=== PATIENT | male | born 1965 | race Caucasian/White ===

== ENCOUNTER → 2017-12-02 | Outpatient (CLI) | payer OTHER ==
[~2017-12-02] MED LIST: COLACE100 MG PO; FLEXERIL PO; LISINOPRIL-HCT1 EAC1 PO
--- NOTE | ~2017-12-02 | 2DMMODE ---
[facility] [place] [address] 2 D/M-MODE ECHOCARDIOGRAM Name: MARIA GUADALUPE ROBLERO JR Room #: REG [facility]#: [id number] Admission: 12/02/17 Attend Phys: Murray Kwong, Discharge: Date of : 67 Date of Service: 12/02/17 1724 Report #: [id number] THIS REPORT FOR: //name// APPROVED REPORT Study performed: 12/02/2017 14:04:34 EXAM: Comprehensive 2D, Doppler, and color-flow Echocardiogram Patient Location: Echo lab Status: routine BSA: 2.28 HR: 70 bpm BP: 130/91 mmHg Rhythm: NSR Other Information Study Quality: Adequate Risk Factors: Cardiac Risk Factors: HTN Indications Pulmonary Embolism 2D Dimensions LVEF(%): 55.00 (>50%) IVSd: 10.26 (7-11mm) LVOT Diam: 22.00 (18-24mm) LVDd: 52.07 mm PWd: 10.80 (7-11mm) Ascending Ao: 33.71 (22-36mm) LVDs: 39.10 (25-40mm) Aortic Root: 31.79 mm LV Single Plane 4CH: 54.21 % LV Single Plane 2CH: 55.97 % Alcantara's LVEF: 55.09 % Biplane EF: 55.4 % Volumes Left Atrial Volume (Systole) Single Plane 4CH: 43.51 mL Single Plane 2CH: 48.21 mL LA ESV Index: 22.00 mL/m2 Aortic Valve AoV Peak Rene.: 1.22 m/s AO Peak Gr.: 5.93 mmHg LVOT Max P.21 mmHg LVOT Max V: 1.03 m/s [facility] [place] [address] 2 D/M-MODE ECHOCARDIOGRAM Name: MARIA GUADALUPE ROBLERO Room #: [facility]#: [id number] Admission: 12/02/17 Attend Phys: Murray Kwong, Discharge: Date of : 67 Date of Service: 12/02/17 1724 Report #: [id number] CLINT Vmax: 3.28 cm2 Mitral Valve E/A Ratio: 0.9 MV Decel. Time: 254.76 ms MV E Max Rene.: 0.62 m/s MV A Rene.: 0.69 m/s MV PHT: 73.88 ms IVRT: 65.74 ms TDI E/Lateral E': 5.17 E/Medial E': 7.75 Medial E' Rene.: 0.08 m/s Lateral E' Rene.: 0.12 m/s Pulmonary Valve PV Peak Rene.: 0.99 m/s PV Peak Gr.: 3.93 mmHg Pulmonary Vein P Vein S: 0.55 m/s P Vein A: 0.28 m/s P Vein D: 0.62 m/s P Vein A Dur.: 107.3 msec P Vein S/D Ratio: 0.89 Tricuspid Valve RAP Estimate: 7.00 mmHg Left Ventricle The left ventricle is normal size. There is normal LV segmental wall motion. There is normal left ventricular wall thickness. Left ventricular systolic function is normal. The left ventricular ejection fraction is within the normal range. LVEF is 55-60%. Right Ventricle The right ventricle is normal size. The right ventricular systolic function is normal. Atria The left atrium size is normal. The right atrium size is normal. Aortic Valve The aortic valve is normal in structure. No aortic regurgitation is present. There is no aortic valvular stenosis. Mitral Valve The mitral valve is normal in structure. There is no mitral valve [place] [address] [place] [address] 2 D/M-MODE ECHOCARDIOGRAM Name: MARIA GUADALUPE ROBLERO CATRACHO Room #: REG [facility]#: [id number] Admission: 12/02/17 Attend Phys: Murray Kwong, Discharge: Date of : 67 Date of Service: 12/02/17 1724 Report #: [id number] regurgitation noted. No evidence of mitral valve stenosis. Tricuspid Valve The tricuspid valve is normal in structure. There is no tricuspid valve regurgitation noted. Pulmonic Valve The pulmonary valve is normal in structure. There is no pulmonic valvular regurgitation. Great Vessels The aortic root is normal in size. IVC is normal in size and collapses >50% with inspiration. Pericardium There is no pericardial effusion. <Conclusion> Left ventricular systolic function is normal. There is normal LV segmental wall motion. LVEF is 55-60%. The aortic valve is normal in structure. No aortic regurgitation or stenosis The mitral valve is normal in structure. No mitral valve regurgitation. Pulmonary artery pressure could not be reliably ascertained There is no pericardial effusion. <ELECTRONICALLY SIGNED> By: Kevin Torrez MD, FACC 12/02/17 1724 23 23 Kevin Torrez MD, FACC /INF
== END ==
LOC: CV 06:10
DX: I26.99 Other pulmonary embolism without acute cor pulmonale (principal); Z88.5 Allergy status to narcotic agent